=== PATIENT | male | born 1975 | race Caucasian/White ===

== ENCOUNTER 2023-05-31 17:57 | Emergency (ER) | payer BC | END 2023-05-31 19:09 | disposition home or self-care (01) | LOC: JD.ED 17:57 | DX: S86.911A Strain of unspecified muscle(s) and tendon(s) at lower leg level, right leg, initial encounter (principal); Z86.16 Personal history of COVID-19; X50.9XXA Other and unspecified overexertion or strenuous movements or postures, initial encounter; Y93.01 Activity, walking, marching and hiking | CPT/HCPCS: 99282; 99283 ==